=== PATIENT | male | born 1950 | race African-American/Black ===

== ENCOUNTER 2016-11-17 20:20 | Emergency (ER) | payer MEDICARE, MEDICAID ==
[~2016-11-17] VITALS: Ht 172.7 cm; Wt 92.0 kg
[2016-11-17 22:07] VITALS: BP 174/64
== END 2016-11-17 23:09 | disposition home or self-care (01) ==
LOC: ER 21:53
DX: F10.229 Alcohol dependence with intoxication, unspecified (principal); S00.83XA Contusion of other part of head, initial encounter; I10 Essential (primary) hypertension; F12.10 Cannabis abuse, uncomplicated; W19.XXXA Unspecified fall, initial encounter; Y93.89 Activity, other specified; Y92.89 Other specified places as the place of occurrence of the external cause; Y99.8 Other external cause status
CPT/HCPCS: 99283

== ENCOUNTER 2018-03-19 18:14 | Inpatient (IN) | payer MEDICARE, MEDICAID ==
[~2018-03-19] VITALS: Ht 180.3 cm; Wt 80.7 kg
[2018-03-19] MEDS ORDERED: ACETAMINOPHEN 325MG TABLET PO ONE (20:15)
[2018-03-19] MEDS ORDERED: SODIUM CHLORIDE 0.9% 1,000 ML IV ONE ×2 (20:45→22:30)
[2018-03-19] MEDS ORDERED: PERMETHRIN 5% CREAM 60GM TOP ONE (23:00)
[2018-03-19 23:53] LABS: CLARITY URINE TURBID (CLEAR); COLOR URINE YELLOW (YELLOW); KETONES URINE NEGATIVE (NEGATIVE); LEUKOCYTE ESTERASE URINE 3+ (NEGATIVE); NITRITE URINE NEGATIVE (NEGATIVE); OCCULT BLOOD URINE 2+ (NEGATIVE); PH URINE 5.5 (4.5-8.0); PROTEIN URINE 2+ (NEGATIVE); SPECIFIC GRAVITY URINE 1.011 (1.005-1.030); UROBILINOGEN URINE 0.2 E.U./dL (0.2-1.0)
[2018-03-19 23:55] LABS: HEMATOCRIT. 35.3 % (42.0-52.0); HEMOGLOBIN. 11.7 g/dL (14.0-18.0); MEAN CORPUSCULAR HEMOGLOBIN 29.4 pg (28.0-32.0); MEAN PLATELET VOLUME 7.2 fl (7.4-10.4); PLATELET 355 x1000/uL (130-400); RED BLOOD CELL COUNT 3.96 mill/uL (4.7-6.1); RED CELL DISTRIBUTION WIDTH 16.9 % (11.6-14.6)
[2018-03-20 00:01] LABS: CHLORIDE 99 mEq/L (98-107); INR 1.2; PROTHROMBIN TIME 12.5 sec (9.4-11.6)
[2018-03-20 00:15] LABS: *AMPHETAMINES SCREEN URINE NEGATIVE (NEGATIVE); *BARBITURATES SCREEN URINE NEGATIVE (NEGATIVE); *BENZODIAZEPINES SCREEN URINE NEGATIVE (NEGATIVE); *COCAINE SCREEN URINE NEGATIVE (NEGATIVE)
[2018-03-20 00:16] LABS: CANNABINOID URINE SCREEN NEGATIVE (NEGATIVE); METHADONE URINE SCREEN NEGATIVE (NEGATIVE); OPIATES URINE SCREEN NEGATIVE (NEGATIVE); PHENCYCLIDINE URINE SCREEN NEGATIVE (NEGATIVE)
[2018-03-20] MEDS ORDERED: CEFTRIAXONE 1 G PREMIX 50 ML IV ONE (00:45)
[2018-03-20] MEDS ORDERED: ONDANSETRON HCL 4MG/2ML VIAL IV PRN (01:30)
[2018-03-20] MEDS ORDERED: LEVOFLOXACIN 500MG PREMIX 100 ML IV SCH (01:30)
[2018-03-20] MEDS ORDERED: DOCUSATE SODIUM 100MG CAPSULE PO PRN (01:30)
[2018-03-20] MEDS ORDERED: LORAZEPAM 2MG/ML CPJ IV PRN (01:30)
[2018-03-20 04:47] LABS: PLATELET ESTIMATE NORMAL
[2018-03-20] MEDS: ACETAMINOPHEN 325MG TABLET PO PRN (05:35)
[2018-03-20] MEDS: DEXT 5%/0.45% NACL 1000ML 1,000 ML IV SCH ×2 (05:45→21:28)
[2018-03-20] MEDS ORDERED: ACETAMINOPHEN 325MG TABLET PO STA (05:56)
[2018-03-20] MEDS ORDERED: SODIUM CHLORIDE 0.9% 1000ML BAG (SEPSIS BOLUS) IV ONE (06:00)
[2018-03-20] MEDS ORDERED: IBUPROFEN 600MG TABLET PO ONE (06:00)
[2018-03-20] MEDS ORDERED: LEVOFLOXACIN 500MG PREMIX 100 ML IV NR (06:15)
[2018-03-20 06:45] LABS: BG CARBOXYHEMOGLOBIN 0.1 % (0.5-1.5); BG DEOXYHEMOGLOBIN 3.7 % (0.0-5.0); BG FRACTION INSPIRED OXYGEN 21; BG HCO3 ACT 16.9 mmol/L (22.0-26.0); BG METHEMOGLOBIN 0.2 % (0.0-1.5); BG OXYGEN SATURATION 96.3 % (92.0-98.5); BG PCO2 25.6 mmHg (35.0-45.0); BG PH 7.437 (7.350-7.450); BG PO2 84.1 mmHg (75.0-100.0); BG SAMPLE SITE RIGHT RADIAL; BG TOTAL HEMOGLOBIN 11.1 g/dL (12.0-18.0); BG VENT MODE 21
[2018-03-20] MEDS ORDERED: ONDANSETRON 4MG ODT PO PRN (10:15)
[2018-03-20 12:00] VITALS: BP 131/85
[2018-03-20 12:10] VITALS: BP 134/95
[2018-03-20 16:00] VITALS: BP 106/70
[2018-03-20 20:00] VITALS: BP 125/81
[2018-03-20] MEDS: IPRATROPIUM/ALBUTEROL 0.5-3(2.5)MG/3ML NEB HHN SCH (21:15)
[2018-03-21] VITALS: BP 157/10
[2018-03-21] MEDS: IPRATROPIUM/ALBUTEROL 0.5-3(2.5)MG/3ML NEB HHN SCH ×3 (01:05→21:37)
[2018-03-21 04:00] VITALS: BP 170/112
[2018-03-21] MEDS ORDERED: FUROSEMIDE 20MG/2ML VIAL IVP SCH (05:23)
[2018-03-21] MEDS: LEVOFLOXACIN 250MG PREMIX 50 ML IV SCH (05:33)
[2018-03-21 07:43] LABS: CHLORIDE 102 mEq/L (98-107)
[2018-03-21 07:48] LABS: HEMATOCRIT. 30.5 % (42.0-52.0); MEAN CORPUSCULAR HEMOGLOBIN 29.4 pg (28.0-32.0); MEAN PLATELET VOLUME 7.5 fl (7.4-10.4); PLATELET 288 x1000/uL (130-400); RED BLOOD CELL COUNT 3.42 mill/uL (4.7-6.1); RED CELL DISTRIBUTION WIDTH 16.6 % (11.6-14.6)
[2018-03-21 08:00] VITALS: BP_SYST 126; BP_SYST 140; BP_DIAS 62; BP_DIAS 87
[2018-03-21] MEDS ORDERED: CLONIDINE 0.1MG TABLET PO PRN (10:00)
[2018-03-21] MEDS: AMLODIPINE 5MG TABLET PO SCH ×2 (11:02→21:02)
[2018-03-21 11:36] LABS: LDL CHOLESTEROL 24 mg/dL (5-100)
[2018-03-21 11:38] LABS: HDL CHOLESTEROL 26 mg/dL (40-59)
[2018-03-21 17:12] LABS: PLATELET ESTIMATE NORMAL
[2018-03-21 20:00] VITALS: BP 148/91
[2018-03-21] MEDS: ACETAMINOPHEN 325MG TABLET PO PRN (21:28)
[2018-03-21] MEDS: DIPHENHYDRAMINE 25MG CAPSULE PO PRN (21:28)
[2018-03-22] VITALS (7 sets, daily range): BP systolic 127–154; BP diastolic 85–102
[2018-03-22] MEDS: IPRATROPIUM/ALBUTEROL 0.5-3(2.5)MG/3ML NEB HHN SCH ×4 (02:55→21:05)
[2018-03-22] MEDS: LEVOFLOXACIN 250MG PREMIX 50 ML IV SCH (06:31)
[2018-03-22 06:36] LABS: BASOPHILS % 0.2 % (0.0-2.0); EOSINOPHILS % 0.3 % (0.0-5.0); HEMATOCRIT. 33.7 % (42.0-52.0); HEMOGLOBIN. 11.2 g/dL (14.0-18.0); LYMPHOCYTES % 9.9 % (20.0-50.0); MEAN CORPUSCULAR HEMOGLOBIN 29.1 pg (28.0-32.0); MEAN PLATELET VOLUME 7.3 fl (7.4-10.4); MONOCYTES % 8.8 % (2.0-8.0); NEUTROPHILS % 80.8 % (40.0-76.0); PLATELET 298 x1000/uL (130-400); RED BLOOD CELL COUNT 3.84 mill/uL (4.7-6.1); RED CELL DISTRIBUTION WIDTH 16.5 % (11.6-14.6)
[2018-03-22 06:55] LABS: CHLORIDE 99 mEq/L (98-107)
[2018-03-22] MEDS ORDERED: POTASSIUM CHLORIDE 20MEQ TABLET SR PO NR (08:45)
[2018-03-22] MEDS: AMLODIPINE 5MG TABLET PO SCH ×2 (09:05→21:56)
[2018-03-22] MEDS: ACETAMINOPHEN 325MG TABLET PO PRN (14:22)
[2018-03-23] VITALS: BP 135/85
[2018-03-23] MEDS: IPRATROPIUM/ALBUTEROL 0.5-3(2.5)MG/3ML NEB HHN SCH ×4 (02:59→20:25)
[2018-03-23 04:00] VITALS: BP 139/98
[2018-03-23] MEDS: LEVOFLOXACIN 250MG PREMIX 50 ML IV SCH (05:53)
[2018-03-23] MEDS: ACETAMINOPHEN 325MG TABLET PO PRN (07:22)
[2018-03-23 07:38] LABS: BASOPHILS % 0.3 % (0.0-2.0); EOSINOPHILS % 0.3 % (0.0-5.0); HEMATOCRIT. 34.8 % (42.0-52.0); HEMOGLOBIN. 11.5 g/dL (14.0-18.0); LYMPHOCYTES % 12.9 % (20.0-50.0); MEAN CORPUSCULAR HEMOGLOBIN 29.4 pg (28.0-32.0); MEAN CORPUSCULAR VOLUME 88.8 fL (80.0-94.0); MEAN PLATELET VOLUME 7.5 fl (7.4-10.4); MONOCYTES % 11.1 % (2.0-8.0); NEUTROPHILS % 75.4 % (40.0-76.0); PLATELET 286 x1000/uL (130-400); RED BLOOD CELL COUNT 3.92 mill/uL (4.7-6.1)
[2018-03-23 08:00] VITALS: BP 141/94
[2018-03-23] MEDS: AMLODIPINE 5MG TABLET PO SCH ×2 (09:25→21:38)
[2018-03-23 12:00] VITALS: BP 106/82
[2018-03-23 16:00] VITALS: BP 136/71
[2018-03-23 20:00] VITALS: BP 143/96
[2018-03-24] VITALS: BP 157/100
[2018-03-24 04:00] VITALS: BP 162/101
[2018-03-24] MEDS: IPRATROPIUM/ALBUTEROL 0.5-3(2.5)MG/3ML NEB HHN SCH ×4 (05:21→22:16)
[2018-03-24 08:00] VITALS: BP 150/99
[2018-03-24] MEDS: AMLODIPINE 5MG TABLET PO SCH ×2 (08:29→21:51)
[2018-03-24] MEDS: LEVOFLOXACIN 500MG TABLET PO SCH (11:28)
[2018-03-24 12:00] VITALS: BP 148/75
[2018-03-24 16:30] VITALS: BP 140/97
[2018-03-24] MEDS: IPRATROPIUM/ALBUTEROL 0.5-3(2.5)MG/3ML NEB HHN PRN (17:23)
[2018-03-24 20:00] VITALS: BP 112/82
[2018-03-24] MEDS: ACETAMINOPHEN 325MG TABLET PO PRN (22:20)
[2018-03-25] VITALS: BP 138/85
[2018-03-25 04:00] VITALS: BP 140/93
[2018-03-25] MEDS: IPRATROPIUM/ALBUTEROL 0.5-3(2.5)MG/3ML NEB HHN SCH ×3 (07:57→21:50)
[2018-03-25 08:00] VITALS: BP 143/99
[2018-03-25] MEDS: AMLODIPINE 5MG TABLET PO SCH ×2 (09:37→20:39)
[2018-03-25] MEDS: LEVOFLOXACIN 500MG TABLET PO SCH (11:44)
[2018-03-25 12:00] VITALS: BP 136/93
[2018-03-25] MEDS: IPRATROPIUM/ALBUTEROL 0.5-3(2.5)MG/3ML NEB HHN PRN (15:55)
[2018-03-25 16:00] VITALS: BP 115/79
[2018-03-25 20:00] VITALS: BP 123/80
[2018-03-25] MEDS: DIPHENHYDRAMINE 25MG CAPSULE PO PRN (20:39)
[2018-03-26] VITALS: BP 120/81
[2018-03-26 04:00] VITALS: BP 129/87
[2018-03-26] MEDS: IPRATROPIUM/ALBUTEROL 0.5-3(2.5)MG/3ML NEB HHN PRN (04:05)
[2018-03-26 07:48] VITALS: BP 126/66
[2018-03-26] MEDS: AMLODIPINE 5MG TABLET PO SCH ×2 (08:42→20:53)
[2018-03-26] MEDS: IPRATROPIUM/ALBUTEROL 0.5-3(2.5)MG/3ML NEB HHN SCH ×5 (09:44→20:54)
[2018-03-26] MEDS: LEVOFLOXACIN 500MG TABLET PO SCH (11:59)
[2018-03-26 12:00] VITALS: BP 135/79
[2018-03-26 16:00] VITALS: BP 126/80
[2018-03-26 20:00] VITALS: BP 117/80
[2018-03-27] VITALS: BP 120/80
[2018-03-27] MEDS: IPRATROPIUM/ALBUTEROL 0.5-3(2.5)MG/3ML NEB HHN SCH (01:09)
[2018-03-27 04:00] VITALS: BP 117/60
[2018-03-27 07:48] VITALS: BP 146/98
[2018-03-27] MEDS: AMLODIPINE 5MG TABLET PO SCH (09:07)
[2018-03-27] MEDS: LEVOFLOXACIN 500MG TABLET PO SCH (11:07)
[2018-03-27 11:58] VITALS: BP 132/86
[2018-03-27 16:00] VITALS: BP 121/78
[2018-03-27 16:13] VITALS: BP 121/78
== END 2018-03-27 17:15 | DRG 871 ==
LOC: ER 18:14 → EDBEDREQ 23:04 → 8WST 03-20 00:48 → SUPCPDRO 03-20 01:19 → EDBEDREQTM 03-20 01:20 → EDBEDREQ 03-20 01:20 → EDBEDREQDT 03-20 01:20 → EDBEDREQSVC 03-20 06:09 → EDBEDREQ 03-20 06:09 → EDBEDREQTM 03-20 06:09 → EDBEDREQ 03-20 08:47 → EDBEDREQTM 03-20 08:47 → EDBEDREQSVC 03-20 08:47 → ENRESERV 03-20 09:04
PROVIDERS: ADMIT Hospitalist; ATTEND Hospitalist
PROC: 0HBEXZZ Excision of Left Lower Arm Skin, External Approach (ICD-10-PCS; principal; 2018-03-26)
PROC: 0HBDXZZ Excision of Right Lower Arm Skin, External Approach (ICD-10-PCS; 2018-03-26)
DX: A41.9 Sepsis, unspecified organism (principal); G93.40 Encephalopathy, unspecified; E43 Unspecified severe protein-calorie malnutrition; N39.0 Urinary tract infection, site not specified; N17.9 Acute kidney failure, unspecified; E87.1 Hypo-osmolality and hyponatremia; N13.6 Pyonephrosis; F10.20 Alcohol dependence, uncomplicated; M54.9 Dorsalgia, unspecified; F12.90 Cannabis use, unspecified, uncomplicated; J45.909 Unspecified asthma, uncomplicated; K44.9 Diaphragmatic hernia without obstruction or gangrene; K57.30 Diverticulosis of large intestine without perforation or abscess without bleeding; K80.20 Calculus of gallbladder without cholecystitis without obstruction; M47.816 Spondylosis without myelopathy or radiculopathy, lumbar region; K52.9 Noninfective gastroenteritis and colitis, unspecified; K74.60 Unspecified cirrhosis of liver; B86 Scabies; I10 Essential (primary) hypertension; Z68.24 Body mass index [BMI] 24.0-24.9, adult
CPT/HCPCS: 36415; 36600; 71045; 74176; 80048; 80053; 80061; 80305; 81003; 82375; 82805; 83605; 83735; 85025; 85610; 87040; 87077; 87086; 88302; 93005; 93970; 94640; 96361; 96365; 96367; 97116; 97162; 99291; G0482; J0696; J1940; J1956; J7030; J7040; J7620; Q0163